=== PATIENT | male | born 1990 | race African-American/Black ===

== ENCOUNTER 2017-03-06 16:59 | Observation (INO) | payer OTHER ==
[~2017-03-06 16:59] MED LIST: CLIN150 PO; IBUP800T23 PO
[2017-03-06 17:02] VITALS: BP 142/86; PULSE 70; RESP 20; TEMP 97.8; O2SAT 99
--- NOTE | 2017-03-06 17:45 | PD ---
Physical Exam Date Seen by Provider: Mar 06, 2017 Time Seen by Provider: 17:45 Narrative 27 yo male here for evaluation of chest pain. Was seen by [facility] and was sent here for evaluation. No history of cardiac disease. Pain since yesterday. Nothing makes it better. Worst with deep breaths. Pain is 8/10. Vitals are stable. Awaiting bed placement. Data Data Last Documented VS Vital Signs Date Time Temp Pulse Resp B/P Pulse Ox O2 Delivery O2 Flow Rate FiO2 03/06/17 17:02 97.8 70 20 142/86 99 Room Air Orders Electrocardiogram (03/06/17 ) [facility] Medical Record Reviewed: Yes Supervised Visit with RICHARD: No Johan Lewis Mar 06, 2017 17:45
--- NOTE | 2017-03-06 18:34 | RADRPT ---
EXAM DATE/TIME: 03/06/2017 18:08 [place] COMPARISON: No previous studies available for comparison. INDICATIONS : Chest pain. MEDICAL HISTORY : None. SURGICAL HISTORY : None. ENCOUNTER: Initial ACUITY: 1 day PAIN SCORE: 8/10 LOCATION: Left chest FINDINGS: The lungs are clear. The heart is minimally enlarged. The pulmonary vascularity is normal. There is n o evidence for infiltrate or failure. The portion of the bony skeleton visualized is unremarkable. CONCLUSION: Cardiac silhouette is prominent, otherwise negative Board Certified Radiologist. This report was verified electronically.
[2017-03-06 18:35] LABS: BASOPHIL % 0.2 % (0.0-2.0); EOSINOPHIL # 0.3 TH/MM3 (0-0.4); EOSINOPHIL % 3.4 % (0.0-4.0); HEMATOCRIT 41.3 % (39.0-51.0); HEMO FLAGS DIFF FINAL; LYMPH % 20.3 % (9.0-44.0); LYMPHOCYTE # 1.7 TH/MM3 (1.0-4.8); MEAN CELL VOLUME 90.5 FL (80.0-100.0); MEAN CORPUSCULAR HEMOGLOBIN 29.3 PG (27.0-34.0); MEAN CORPUSCULAR HGB CONC 32.4 % (32.0-36.0); MONO % 16.1 % (0.0-8.0); PLATELET COUNT 192 TH/MM3 (150-450); RED BLOOD COUNT 4.56 MIL/MM3 (4.50-5.90); RED CELL DISTRIBUTION WIDTH 13.8 % (11.6-17.2); WHITE BLOOD COUNT 8.4 TH/MM3 (4.0-11.0)
[2017-03-06 18:43] VITALS: O2SAT 99
[2017-03-06 18:51] LABS: APTT (PATIENT) 31.5 SEC (24.3-30.1); PROTHROMBIN TIME - PATIENT 10.7 SEC (9.8-11.6)
[2017-03-06] MEDS ORDERED: KETOROLAC TROMETHAMINE 30 MG/ML (IVP) VIAL IV PUSH ONE (19:00)
--- NOTE | 2017-03-06 19:03 | PD ---
HPI Chief Complaint: Cardiac Complaint Time Seen by Provider: 19:01 Travel History International Travel<30 days: No Contact w/Intl Traveler<30days: No Traveled to known affect area: No History of Present Illness HPI Patient is a 27-year-old male presenting to the emergency department evaluation of chest pain. Patient states the pain started this morning while he was at work. He reports it has gotten worse over the course of the day. His pain is midsternal, sharp, worse with movement and deep inspiration. He denies any congestion, cough, fever, chills, nausea, vomiting, headache or abdominal pain. He does endorse tobacco use, occasional alcohol use, a remote history of marijuana use. He denies any significant past medical history. He was seen and evaluated at [facility] outpatient clinic this morning and sent here for further evaluation. [facility] Past Medical History Medical History: Denies Significant Hx Past Surgical History Surgical History: No Previous Surgery Social History Alcohol Use: Yes (occasional) Tobacco Use: Yes Substance Use: No (remote marijuana use) Allergies-Medications (Allergen,Severity, Reaction): Coded Allergies: No Known Allergies (Verified , 07/18/14) Reported Meds & Prescriptions Reported Meds & Active Scripts Active No Active Prescriptions or Reported Medications Review of Systems Except as stated in HPI: all other systems reviewed are Neg Cardiovascular: Positive: Chest Pain or Discomfort Respiratory: Positive: Pleuritic Pain Physical Exam Narrative GENERAL: Obese, well-developed, alert gentleman. Resting in no acute distress. SKIN: Warm and dry. HEAD: Atraumatic. Normocephalic. EYES: Pupils equal and round. No scleral icterus. No injection or drainage. ENT: No nasal bleeding or discharge. Mucous membranes pink and moist. NECK: Trachea midline. No JVD. CARDIOVASCULAR: Regular rate and rhythm. 1/6 systolic murmur RESPIRATORY: No accessory muscle use. Clear to auscultation. Breath sounds equal bilaterally. GASTROINTESTINAL: Abdomen soft, non-tender, nondistended. Hepatic and splenic margins not palpable. MUSCULOSKELETAL: Extremities without clubbing, cyanosis, or edema. No obvious deformities. NEUROLOGICAL: Awake and alert. No obvious cranial nerve deficits. Motor grossly within normal limits. Five out of 5 muscle strength in the arms and legs. Normal speech. PSYCHIATRIC: Appropriate mood and affect; insight and judgment normal. Data Data Last Documented VS Vital Signs Date Time Temp Pulse Resp B/P Pulse Ox O2 Delivery O2 Flow Rate FiO2 03/06/17 19:32 56 16 133/63 100 Room Air 03/06/17 17:02 97.8 Orders Electrocardiogram (03/06/17 ) Complete Blood Count With Diff (03/06/17 17:46) Basic Metabolic Panel (Bmp) (03/06/17 17:46) Ckmb (Isoenzyme) Profile (03/06/17 17:46) Troponin I (03/06/17 17:46) Chest, Single Ap (03/06/17 17:46) Iv Access Insert/Monitor (03/06/17 17:46) Ecg Monitoring (03/06/17 17:46) Oxygen Administration (03/06/17 17:46) Oximetry (03/06/17 17:46) Act Partial Throm Time (Ptt) (03/06/17 17:46) Prothrombin Time / Inr (Pt) (03/06/17 17:46) D-Dimer (03/06/17 17:46) Ketorolac Inj (Toradol Inj) (03/06/17 19:00) CKMB (03/06/17 19:50) CKMB% (03/06/17 19:50) Labs Laboratory Tests Test 03/06/17 03/06/17 18:20 19:50 White Blood Count 8.4 TH/MM3 Red Blood Count 4.56 MIL/MM3 Hemoglobin 13.4 GM/DL Hematocrit 41.3 % Mean Corpuscular Volume 90.5 FL Mean Corpuscular Hemoglobin 29.3 PG Mean Corpuscular Hemoglobin 32.4 % Concent Red Cell Distribution Width 13.8 % Platelet Count 192 TH/MM3 Mean Platelet Volume 9.4 FL Neutrophils (%) (Auto) 60.0 % Lymphocytes (%) (Auto) 20.3 % Monocytes (%) (Auto) 16.1 % Eosinophils (%) (Auto) 3.4 % Basophils (%) (Auto) 0.2 % Neutrophils # (Auto) 5.0 TH/MM3 Lymphocytes # (Auto) 1.7 TH/MM3 Monocytes # (Auto) 1.3 TH/MM3 Eosinophils # (Auto) 0.3 TH/MM3 Basophils # (Auto) 0.0 TH/MM3 CBC Comment DIFF FINAL Differential Comment Prothrombin Time 10.7 SEC Prothromb Time International 1.0 RATIO Ratio Activated Partial 31.5 SEC Thromboplast Time D-Dimer Quantitative (PE/DVT) 0.22 MG/L FEU Sodium Level 138 MEQ/L Potassium Level 4.1 MEQ/L Chloride Level 104 MEQ/L Carbon Dioxide Level 28.1 MEQ/L Anion Gap 6 MEQ/L Blood Urea Nitrogen 13 MG/DL Creatinine 1.16 MG/DL Estimat Glomerular Filtration 92 ML/MIN Rate Random Glucose 88 MG/DL Calcium Level 8.9 MG/DL Total Creatine Kinase 119 U/L Creatine Kinase MB LESS THAN 0.5 NG/ML Troponin I LESS THAN 0.02 NG/ML MDM Medical Decision Making Medical Screen Exam Complete: Yes Emergency Medical Condition: Yes Interpretation(s) Vital Signs Date Time Temp Pulse Resp B/P Pulse Ox O2 Delivery O2 Flow Rate FiO2 03/06/17 18:43 99 03/06/17 18:43 Nasal Cannula 03/06/17 17:02 97.8 70 20 142/86 99 Room Air Differential Diagnosis Pleurisy versus costochondritis versus acute coronary syndrome versus arrhythmia versus electrolyte abnormality versus other Narrative Course Patient is a 27-year-old male presenting for evaluation of chest pain that started this morning. Imaging ordered and pending. Patient's vital signs are stable, his heart rate is in the 50s, he states this is normal for him. CBC is unremarkable Chemistry is unremarkable, CK-MB and troponin are negative 1 set Coags are unremarkable, d-dimer is negative. EKG has nonspecific T-wave changes Patient is obese, borderline hypertensive, he is a smoker. He has no primary care provider to follow-up with, and establishing with one would take some time. Patient will be placed and chest pain center to trend enzymes. He is agreeable to plan, orders placed. Diagnosis Primary Impression: Chest pain Qualified Code: R07.9 - Chest pain, unspecified type Admitting Information Admitting Physician Requests: Observation Scripts No Active Prescriptions or Reported Meds Condition: Stable Elana Chi Mar 06, 2017 19:03
[2017-03-06 19:32] VITALS: BP 133/63; O2SAT 100
[2017-03-06 20:22] LABS: ANION GAP 6 MEQ/L (5-15); BICARBONATE 28.1 MEQ/L (21.0-32.0); BLOOD UREA NITROGEN 13 MG/DL (7-18); CHLORIDE 104 MEQ/L (98-107); GLOMERULAR FILTRATION RATE 92 ML/MIN (>89); POTASSIUM 4.1 MEQ/L (3.5-5.1); SODIUM (NA) 138 MEQ/L (136-145)
[2017-03-06 20:26] LABS: CREATINE KINASE 119 U/L (39-308)
[2017-03-06 20:39] LABS: CKMB LESS THAN 0.5 NG/ML (0.5-3.6)
[2017-03-06] MEDS ORDERED: SODIUM CHLORIDE 0.9% FLUSH 10 ML FLUSH IV FLUSH PRN (21:15)
[2017-03-06] MEDS ORDERED: ONDANSETRON HCL 4 MG/2 ML VIAL IV PRN (21:15)
[2017-03-06] MEDS ORDERED: NITROGLYCERIN 0.4 MG SL 25 TABS/BTL SL PRN (21:15)
[2017-03-06] MEDS ORDERED: ACETAMINOPHEN 500 MG CPLT PO PRN (21:15)
[2017-03-06 22:13] VITALS: BP 117/78; PULSE 81; RESP 18; O2SAT 98
[2017-03-06] MEDS: SODIUM CHLORIDE 0.9% FLUSH 10 ML FLUSH IV FLUSH SCH (22:18)
--- NOTE | 2017-03-06 22:27 | EKG ---
Date Performed: 03/06/2017 Time Performed: 18:05:26 PTAGE: 27 years EKG: SINUS BRADYCARDIA WITH SINUS ARRHYTHMIA BORDERLINE ECG NO PREVIOUS TRACING DOCTOR: Chester Medina Interpretating Date/Time 03/06/2017 22:25:36
[2017-03-06 23:05] LABS: CREATINE KINASE 117 U/L (39-308)
[2017-03-06 23:12] VITALS: BP 134/68; PULSE 74; RESP 18; TEMP 98.4; O2SAT 98
[2017-03-06 23:17] LABS: CKMB LESS THAN 0.5 NG/ML (0.5-3.6)
[2017-03-07 00:35] LABS: MAGNESIUM 1.7 MG/DL (1.5-2.5)
[2017-03-07 00:38] LABS: CREATINE KINASE 108 U/L (39-308)
[2017-03-07 01:19] VITALS: PULSE 62
[2017-03-07 07:00] VITALS: PULSE 54
[2017-03-07] MEDS ORDERED: KETOROLAC TROMETHAMINE 60 MG/2 ML (IM) VIAL IM ONE (07:00)
[2017-03-07] MEDS ORDERED: KETOROLAC TROMETHAMINE 30 MG/ML (IVP) VIAL IV PUSH ONE (08:15)
[2017-03-07 08:25] VITALS: BP 116/58; PULSE 57; RESP 14; TEMP 97.8; O2SAT 99
[2017-03-07] MEDS ORDERED: FAMOTIDINE 20 MG TAB PO SCH (09:00)
[2017-03-07] MEDS: SODIUM CHLORIDE 0.9% FLUSH 10 ML FLUSH IV FLUSH SCH (09:17)
--- NOTE | 2017-03-07 09:58 | MH ---
cc: FAVIOLA WHELAN MD DATE OF ADMISSION: 03/06/2017 HISTORY This is a 27-year-old man who was admitted to the hospital for chest pain. He woke up yesterday morning and noticed significant chest discomfort in his anterior chest somewhat on the left side. He noted that his discomfort was worsened with deep breaths or moving. No associated shortness of breath was present. He denied any cough or sputum production. No hemoptysis was present. No prior history of heart disease has been present. PAST MEDICAL HISTORY Otherwise has been unremarkable. He denies any trauma to the area and does not remember lifting of unduly straining himself. PAST MEDICAL HISTORY Otherwise unremarkable. SOCIAL HISTORY The patient drinks rarely. He smokes approximately 1-1/2 pack of cigarettes per week. He does not use recreational drugs. ALLERGIES None. MEDICATIONS None. REVIEW OF SYSTEMS Otherwise unremarkable. PHYSICAL EXAMINATION GENERAL: On physical exam he is awake and alert. He is in no acute distress. NECK: There is no neck vein distension. LUNGS: Clear. CARDIOVASCULAR: Exam reveals a regular rate and rhythm. There is no significant murmur, no gallop is noted. CHEST: Mildly tender to palpation. ABDOMEN: Obese. There is no organomegaly. EXTREMITIES: Reveal no edema. LABORATORY EXAMINATION Essentially unremarkable. Chest x-ray Is normal as is his electrocardiogram ASSESSMENT The patient has musculoskeletal pain. RECOMMENDATIONS We will try a dose of Toradol for him. I think he can be safely discharged and we have him to establish a primary care physician for his further outpatient care. MD BRYANT Neil/REJI /6:56 AM /9:56 AM
--- NOTE | 2017-03-07 11:11 | HHI.DCPOC ---
Discharge Care Plan Diagnosis: (1) Musculoskeletal chest pain Goals to Promote Your Health * To prevent worsening of your condition and complications * To maintain your health at the optimal level Directions to Meet Your Goals Take your medications as prescribed Follow your dietary instruction Follow activity as directed Keep your appointments as scheduled Take your immunizations and boosters as scheduled If your symptoms worsen call your PCP, if no PCP go to Urgent Care Center or Emergency Room Smoking is Dangerous to Your Health. Avoid second hand smoke Call the 24-hour hour crisis hotline for domestic abuse at [facility] Mar 07, 2017 11:11
[2017-03-07] MEDS ORDERED: NAPR500T PO (11:12)
[2017-03-07 12:26] VITALS: BP 119/60; PULSE 56; RESP 16; TEMP 98.1; O2SAT 99
--- NOTE | 2017-03-07 13:25 | EKG ---
Date Performed: 03/07/2017 Time Performed: 00:54:10 PTAGE: 27 years EKG: SINUS BRADYCARDIA WITH SINUS ARRHYTHMIA ST ELEVATION CONSISTENT WITH EARLY REPOLARIZATION A BNORMAL ECG PREVIOUS TRACING : 03/07/2017 00.53 Since previous tracing, no significant change noted DOCTOR: Rodolfo Schmidt Interpretating Date/Time 03/07/2017 13:16:14
--- NOTE | 2017-03-07 13:25 | EKG ---
Date Performed: 03/06/2017 Time Performed: 22:12:01 PTAGE: 27 years EKG: SINUS BRADYCARDIA WITH SINUS ARRHYTHMIA EARLY REPOLARIZATION BORDERLINE ECG PREVIOUS TRACING : 03/06/2017 18.05 Since previous tracing, no significant change noted DOCTOR: Rodolfo Schmidt Interpretating Date/Time 03/07/2017 13:17:04
== END 2017-03-07 14:23 | disposition home or self-care (01) ==
LOC: EDBD → NEPE 16:59 → NEDA 21:17 → NEPFCDU 23:03
PROVIDERS: ADMIT Internal Medicine Cardiovascular Disease; ATTEND Internal Medicine Cardiovascular Disease
DX: R07.89 Other chest pain (principal); F17.210 Nicotine dependence, cigarettes, uncomplicated; R94.31 Abnormal electrocardiogram [ECG] [EKG]
CPT/HCPCS: 71010; 80048; 82550; 82552; 83735; 83880; 84484; 85025; 85379; 85610; 85730; 93005; 96374; 99285; G0378; J1885